=== PATIENT | male | born 1970 | race Caucasian/White ===

== ENCOUNTER 2019-09-07 09:04 | Outpatient (CLI) | payer MEDICAID, SELFPAY ==
--- NOTE | 2019-09-07 09:20 | MR_ITS ---
WS: [id number] MRI CERVICAL SPINE NONCONTRAST TECHNIQUE: Sagittal T1, T2 and STIR imaging. Axial T2, gradient, and fiesta imaging. CLINICAL INFORMATION: CERVICAL DISC DISORDER WITH MYELOPATHY MID-CERVICAL REGION COMPARISON: MRI January 2019 FINDINGS: Normal cervical alignment. Cord signal is normal. Disc bulging worse at C5-C6 and C6-C7. This is allison lar in appearance to . C3-C4: Mild disc osteophyte complex with endplate ridging. Mild bilateral foraminal narrowing. Spinal canal is patent. C4-C5: Slight retrolisthesis C4 on C5. Small central disc protrusion. Mild central canal stenosis. Mo derate facet arthropathy. Mild to moderate bilateral bony foraminal narrowing. C5-6: Disc osteophyte complex with broad-based central protrusion. Moderate central canal stenosis. M oderate to severe left greater than right bony foraminal narrowing. Moderate facet arthropathy. C6-C7: Central disc osteophyte protrusion with contact of the cervical cord. Mild to moderate central canal stenosis. Moderate left and mild right foraminal narrowing.. C7-T1: Normal. Visualized brain stem structures: Normal. Prevertebral soft tissues: Normal. MR/MR cervical spin wo con* [id number] IMPRESSION: 1. Normal cervical alignment. Disc osteophyte protrusions at C5-C6 and C6-C7. 2. Moderate central canal stenosis C5-C6 and mild to moderate central canal st enosis C6-C7 not significantly changed since . 3. Moderate to severe bony foraminal narrowing worse at bilateral C5-C6 worse in the left and left C6-C7. 4. Mild to moderate bilateral foraminal narrowing C4-C5. 5. Overall no significant changes compared to previous.
== END 2019-09-07 09:05 | disposition home or self-care (01) ==
LOC: RADWPI 09:07
PROVIDERS: Family Provider Family Medicine; PCP Family Medicine; Visit Provider Licensed Practical Nurse
DX: M50.020 Cervical disc disorder with myelopathy, mid-cervical region, unspecified level (principal); M48.02 Spinal stenosis, cervical region
CPT/HCPCS: 72141

== ENCOUNTER → 2019-10-05 14:36 | Outpatient (BNVA) | payer MEDICAID, SELFPAY | PROVIDERS: Family Provider Family Medicine; PCP Family Medicine; Visit Provider Anesthesiology | DX: M50.020 Cervical disc disorder with myelopathy, mid-cervical region, unspecified level (principal); M50.30 Other cervical disc degeneration, unspecified cervical region; M47.12 Other spondylosis with myelopathy, cervical region; M47.22 Other spondylosis with radiculopathy, cervical region; M48.02 Spinal stenosis, cervical region; F17.210 Nicotine dependence, cigarettes, uncomplicated; Z79.891 Long term (current) use of opiate analgesic; Z71.6 Tobacco abuse counseling | CPT/HCPCS: 99214 ==

== ENCOUNTER 2019-10-22 08:29 | Outpatient (RCR) | payer MEDICAID, SELFPAY | END 2019-11-09 23:59 | disposition home or self-care (01) | LOC: SPT 08:29 | PROVIDERS: Family Provider Family Medicine; PCP Family Medicine; Referring Provider Specialist; Visit Provider Specialist | DX: M54.2 Cervicalgia (principal); G89.29 Other chronic pain | CPT/HCPCS: 97110; 97161 ==

== ENCOUNTER → 2019-11-05 09:58 | Outpatient (BNVA) | payer MEDICAID, SELFPAY | PROVIDERS: Family Provider Family Medicine; PCP Family Medicine; Visit Provider Anesthesiology | DX: M50.020 Cervical disc disorder with myelopathy, mid-cervical region, unspecified level (principal); M48.02 Spinal stenosis, cervical region; M47.12 Other spondylosis with myelopathy, cervical region; M47.22 Other spondylosis with radiculopathy, cervical region; M50.30 Other cervical disc degeneration, unspecified cervical region; F17.210 Nicotine dependence, cigarettes, uncomplicated; Z76.1 Encounter for health supervision and care of foundling; Z79.891 Long term (current) use of opiate analgesic | CPT/HCPCS: 99214 ==

== ENCOUNTER 2019-11-10 06:00 | Outpatient (RCR) | payer MEDICAID, SELFPAY | END 2019-12-09 23:59 | disposition home or self-care (01) | LOC: SPT 06:00 | PROVIDERS: Family Provider Family Medicine; PCP Family Medicine; Referring Provider Specialist; Visit Provider Specialist | DX: G89.29 Other chronic pain (principal); M54.2 Cervicalgia; M25.519 Pain in unspecified shoulder | CPT/HCPCS: 97110; 97530 ==

== ENCOUNTER 2019-12-21 05:47 | Day surgery (SDC) | payer MEDICAID, SELFPAY ==
[2019-12-20 13:43] VITALS: BMI 24.7
[2019-12-21 06:21] VITALS: BP 128/73; PULSE 72; RESP 20; TEMP 36.3; O2SAT 98
[2019-12-21] MEDS: sodium chloride 0.9% 1,000 ML 30 ML IV (06:26)
[2019-12-21 06:32] LABS: Glucose Point of Care 93 mg/dL (70-110)
--- NOTE | 2019-12-21 06:59 | W.PM.OPSFHP ---
Same Day Surgery H&P Indication for Procedure/HPI DATE OF PROCEDURE: December 21, 2019 CHIEF COMPLAINT/INDICATIONFOR SURGICAL PROCEDURE: screening colonoscopy PREOP DIAGNOSIS: Hematochezia PLANNED PROCEDRUE: Operation Date: 12/21/19 07:05 Proposed Procedures p Colonoscopy 75781 Z12.11(Not Applicable) - Ruperto Kim MD Medications/Allergies* Home Medications Medication Instructions Recorded Confirmed Type acetaminophen 500 mg tablet 1,000 mg PO Q6H PRN 08/23/19 12/20/19 History metformin 500 mg tablet 500 mg PO ONCE tab 08/23/19 12/20/19 History sitagliptin 100 mg tablet 100 mg PO ONCE 08/23/19 12/20/19 History tizanidine 2 mg capsule 2 mg PO BID PRN 08/23/19 12/20/19 History aspirin 81 mg tablet,delayed 81 mg PO ONCE 08/24/19 12/20/19 History release buspirone 5 mg tablet 5 mg PO TID 08/24/19 12/20/19 History gabapentin 100 mg capsule 200 mg PO TID cap 08/24/19 12/20/19 History hydrochlorothiazide 25 mg tablet 25 mg PO QAM 08/24/19 12/20/19 History losartan 50 mg tablet 100 mg PO ONCE tab 08/24/19 12/20/19 History olive leaf extract 250 mg capsule mg PO ONCE cap 08/24/19 11/05/19 History citalopram 10 mg tablet 10 mg PO DAILY 10/05/19 12/20/19 History Allergies/Adverse Reactions Allergy/AdvReac Type Severity Reaction Status Date / Time No Known Allergies Allergy Verified 11/05/19 10:07 Current Medications: Generic Name Dose Route Start Last Admin Trade Name Freq PRN Reason Stop Dose Admin Sodium Chloride 1,000 mls @ 30 mls/hr 12/21/19 06:15 12/21/19 06:26 Sodium Chloride 0.9% IV 12/22/19 06:14 30 mls/hr .Q24H AYDE Administration Pertinent History/Comorbid Conditions* Medical History (Updated 11/05/19 @ 10:13 by Tj Castillo MD) Bilateral carpal tunnel syndrome Cervical disc disorder with myelopathy of mid-cervical region Diabetes Encounter for long-term (current) use of NSAIDs Encounter for long-term opiate analgesic use Hypertension 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 Shoulder pain Stenosis of cervical spine with myelopathy Family History (Updated 08/30/19 @ 14:44 by REMY Barton) Diabetes Mother Heart disease Mother Stroke Grandmother Denies family history of Anesthesia complication Bleeding disorder Social History Smoking and tobacco status: current every day smoker cigarettes Packs smoked per day: 1 Alcohol intake: never Lives independently: Yes Marital status: Single Current occupational status: disabled History of recent travel: No Pertinent Exam Findings alert and oriented x 3 Recommendations Surgery/Procedure today Coding Level of Care Code Acute Tile Professional for Maki Stokes
--- NOTE | 2019-12-21 07:05 | ANES.PREANE2 ---
Pre-Anesthetic Assessment Pre-Anesthetic Assessment: Height/Weight: Height 1.8 m Weight 80.286 kg Temp Pulse Resp BP Pulse Ox 97.3 F L 72 20 H 128/73 98 12/21/19 06:21 12/21/19 06:21 12/21/19 06:21 12/21/19 06:21 12/21/19 06:21 Preop Diagnosis: Hematochezia Proposed Procedure: Operation Date: 12/21/19 07:05 Proposed Procedures p Colonoscopy 73070 Z12.11(Not Applicable) - Ruperto Kim MD Last intake: Intake Last Liquid Date 12/20/19 Last Liquid Time 22:00 Last Solid Date 12/20/19 Last Solid Time 11:00 Social: Social History: Tobacco and No alcohol Exam: Pre-Anes Outpt Exam: alert, oriented x 3, clear to auscultation bilaterally and regular rate & rhythm Airway: Cervical ROM: WNL MP: 1 Dentition: False (upper and lower) History/ROS: No significant history except as noted Pulmonary: Pulmonary: COPD and DAVIS CV/HEM: CV/HEM: HTN : : None reported Hepatic: Hepatic: None reported GI: GI: GERD (occ) Comments: pos heme test Metabolic: Metabolic: DM Musc/skel: Musc/skel: Lower Back Pain and OA/DJD Neuropsych: Neuropsych: Anxiety, Depression and Neuropathy (left hand) Anesthetic Plan: ASA status: 3 Anesthesia: Anesthesia Evaluation and MAC Risk of > 500 ml blood loss (7ml/kg in children): No Meds/Allergies Current Medications: Current Medications Generic Name Dose Route Start Last Admin Trade Name Freq PRN Reason Stop Dose Admin Sodium Chloride 1,000 mls @ 30 ml s/hr 12/21/19 06:15 12/21/19 06:26 Sodium Chloride 0.9% IV 12/22/19 06:14 30 mls/hr .Q24H AYDE Administration PFSH Anesthesia PFSH: Medical History Bilateral carpal tunnel syndrome Cervical disc disorder with myelopathy of mid-cervical region Diabetes Encounter for long-term (current) use of NSAIDs Encounter for long-term opiate analgesic use Hypertension 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
[2019-12-21] MEDS: sodium chloride 0.9% 1,000 ML 100 ML IV (08:15)
[2019-12-21 08:55] VITALS: BP 105/58; PULSE 67; RESP 16; TEMP 36.2; O2SAT 95
[2019-12-21 09:16] VITALS: BP 129/72; PULSE 69; RESP 20; O2SAT 98
== END 2019-12-21 09:20 | disposition home or self-care (01) ==
PROVIDERS: PCP Family Medicine; Visit Provider Surgery
PROC: 0DJD8ZZ Inspection of Lower Intestinal Tract, Via Natural or Artificial Opening Endoscopic (ICD-10-PCS; CPT 45378; principal; 2019-12-21 10:55)
DX: K92.1 Melena (principal); I10 Essential (primary) hypertension; M19.90 Unspecified osteoarthritis, unspecified site; F17.210 Nicotine dependence, cigarettes, uncomplicated; K21.9 Gastro-esophageal reflux disease without esophagitis; E11.40 Type 2 diabetes mellitus with diabetic neuropathy, unspecified; Z82.49 Family history of ischemic heart disease and other diseases of the circulatory system; K64.8 Other hemorrhoids
CPT/HCPCS: 45378; 12345; 36416; 82962; J2704; J7030

== ENCOUNTER → 2020-04-04 09:21 | Outpatient (BNVA) | payer MEDICAID, SELFPAY | PROVIDERS: PCP Family Medicine; Visit Provider Anesthesiology | DX: M48.02 Spinal stenosis, cervical region (principal); M50.020 Cervical disc disorder with myelopathy, mid-cervical region, unspecified level; M47.12 Other spondylosis with myelopathy, cervical region; M47.22 Other spondylosis with radiculopathy, cervical region; M50.30 Other cervical disc degeneration, unspecified cervical region; F17.210 Nicotine dependence, cigarettes, uncomplicated; Z79.891 Long term (current) use of opiate analgesic | CPT/HCPCS: 99213; 99214 ==

== ENCOUNTER → 2020-05-26 10:25 | Outpatient (BNVA) | payer MEDICAID, SELFPAY | PROVIDERS: PCP Internal Medicine; Visit Provider Anesthesiology | DX: M48.02 Spinal stenosis, cervical region (principal); M50.020 Cervical disc disorder with myelopathy, mid-cervical region, unspecified level; M47.12 Other spondylosis with myelopathy, cervical region; M47.22 Other spondylosis with radiculopathy, cervical region; M50.30 Other cervical disc degeneration, unspecified cervical region; F17.210 Nicotine dependence, cigarettes, uncomplicated; Z79.891 Long term (current) use of opiate analgesic | CPT/HCPCS: 99213; 99214 ==

== ENCOUNTER → 2020-07-27 08:04 | Outpatient (BNVA) | payer MEDICAID, SELFPAY | PROVIDERS: PCP Nurse Practitioner Family; Visit Provider Anesthesiology | DX: M48.02 Spinal stenosis, cervical region (principal); M50.020 Cervical disc disorder with myelopathy, mid-cervical region, unspecified level; M47.12 Other spondylosis with myelopathy, cervical region; M47.22 Other spondylosis with radiculopathy, cervical region; M50.30 Other cervical disc degeneration, unspecified cervical region; F17.210 Nicotine dependence, cigarettes, uncomplicated; Z79.891 Long term (current) use of opiate analgesic | CPT/HCPCS: 99213; 99214 ==

== ENCOUNTER → 2020-09-12 09:32 | Outpatient (BNVA) | payer MEDICAID, SELFPAY | PROVIDERS: PCP Nurse Practitioner Family; Visit Provider Anesthesiology | DX: G89.29 Other chronic pain (principal); M48.02 Spinal stenosis, cervical region; M50.020 Cervical disc disorder with myelopathy, mid-cervical region, unspecified level; M47.12 Other spondylosis with myelopathy, cervical region; M47.22 Other spondylosis with radiculopathy, cervical region; M50.30 Other cervical disc degeneration, unspecified cervical region; M25.511 Pain in right shoulder; M25.512 Pain in left shoulder; F17.200 Nicotine dependence, unspecified, uncomplicated; Z79.891 Long term (current) use of opiate analgesic | CPT/HCPCS: 99214 ==

== ENCOUNTER → 2020-11-09 10:09 | Outpatient (BNVA) | payer MEDICAID, SELFPAY | PROVIDERS: PCP Nurse Practitioner Family; Visit Provider Anesthesiology | DX: G89.29 Other chronic pain (principal); M54.42 Lumbago with sciatica, left side; M48.02 Spinal stenosis, cervical region; M50.020 Cervical disc disorder with myelopathy, mid-cervical region, unspecified level; M50.30 Other cervical disc degeneration, unspecified cervical region; M54.9 Dorsalgia, unspecified; F17.210 Nicotine dependence, cigarettes, uncomplicated; Z79.891 Long term (current) use of opiate analgesic | CPT/HCPCS: 99214 ==

== ENCOUNTER → 2021-01-09 09:43 | Outpatient (BNVA) | payer MEDICAID, SELFPAY | PROVIDERS: PCP Nurse Practitioner Family; Visit Provider Anesthesiology | DX: G89.29 Other chronic pain (principal); M48.02 Spinal stenosis, cervical region; M50.020 Cervical disc disorder with myelopathy, mid-cervical region, unspecified level; M47.12 Other spondylosis with myelopathy, cervical region; M47.22 Other spondylosis with radiculopathy, cervical region; M50.30 Other cervical disc degeneration, unspecified cervical region; M54.9 Dorsalgia, unspecified; F17.210 Nicotine dependence, cigarettes, uncomplicated; Z79.891 Long term (current) use of opiate analgesic | CPT/HCPCS: 99214 ==

== ENCOUNTER → 2021-03-09 08:24 | Outpatient (BNVA) | payer MEDICAID, SELFPAY | PROVIDERS: PCP Nurse Practitioner Family; Visit Provider Anesthesiology | DX: G89.29 Other chronic pain (principal); M54.5 Low back pain; M48.02 Spinal stenosis, cervical region; M50.020 Cervical disc disorder with myelopathy, mid-cervical region, unspecified level; M47.12 Other spondylosis with myelopathy, cervical region; M47.22 Other spondylosis with radiculopathy, cervical region; M50.30 Other cervical disc degeneration, unspecified cervical region; F17.210 Nicotine dependence, cigarettes, uncomplicated; Z79.891 Long term (current) use of opiate analgesic | CPT/HCPCS: 99214 ==

== ENCOUNTER → 2021-05-02 08:10 | Outpatient (BNVA) | payer MEDICAID, SELFPAY | PROVIDERS: PCP Nurse Practitioner Family; Visit Provider Anesthesiology | DX: G89.29 Other chronic pain (principal); M54.42 Lumbago with sciatica, left side; M48.02 Spinal stenosis, cervical region; M50.020 Cervical disc disorder with myelopathy, mid-cervical region, unspecified level; M47.12 Other spondylosis with myelopathy, cervical region; M47.22 Other spondylosis with radiculopathy, cervical region; M50.30 Other cervical disc degeneration, unspecified cervical region; F17.210 Nicotine dependence, cigarettes, uncomplicated; Z79.891 Long term (current) use of opiate analgesic | CPT/HCPCS: 99214 ==

== ENCOUNTER → 2021-07-11 09:58 | Outpatient (BNVA) | payer MEDICAID, SELFPAY | PROVIDERS: PCP Nurse Practitioner Family; Visit Provider Anesthesiology | DX: G89.29 Other chronic pain (principal); M54.50 Low back pain, unspecified; M48.02 Spinal stenosis, cervical region; M50.020 Cervical disc disorder with myelopathy, mid-cervical region, unspecified level; M47.12 Other spondylosis with myelopathy, cervical region; M47.22 Other spondylosis with radiculopathy, cervical region; M50.30 Other cervical disc degeneration, unspecified cervical region; M25.511 Pain in right shoulder; M25.512 Pain in left shoulder; F17.200 Nicotine dependence, unspecified, uncomplicated; Z79.891 Long term (current) use of opiate analgesic | CPT/HCPCS: 99214 ==

== ENCOUNTER → 2021-09-11 08:44 | Outpatient (BNVA) | payer MEDICAID, SELFPAY | PROVIDERS: PCP Nurse Practitioner Family; Visit Provider Anesthesiology | DX: G89.29 Other chronic pain (principal); M54.50 Low back pain, unspecified; M48.02 Spinal stenosis, cervical region; G99.2 Myelopathy in diseases classified elsewhere; F17.210 Nicotine dependence, cigarettes, uncomplicated; Z79.891 Long term (current) use of opiate analgesic | CPT/HCPCS: 99214 ==

== ENCOUNTER 2022-12-07 09:46 | Outpatient (CLI) | payer MEDICAID, SELFPAY ==
--- NOTE | 2022-12-07 10:44 | MR_ITS ---
WS: [id number] MRI CERVICAL SPINE NONCONTRAST HISTORY: CERVICAL DDD COMPARISON: 09/07/2019 Technique: Multiplanar, multisequence noncontrast imaging of the cervical spine. Very minimal anterolisthesis of C6. No fractures or marrow edema. Signal within the cervical cord is normal. Visualized posterior fossa is unremarkable. Craniocervical junction, C1 and C2 relationship, odontoid process and soft tissues are normal. C2-C3: Normal. C3-C4: Very minimal annular disc bulging and osteophytic ridging. There is very slight narrowing of t he foramina. C4-C5: Mild annular disc bulging with very mild osteophytic ridging. Mild effacement of ventral CSF a nd mild foraminal narrowing. C5-C6: Diffuse annular disc bulging with marked osteophytic ridging and mild facet arthritis. Moderat e RIGHT and mild LEFT disc osteophyte complexes efface and CSF and deforming the cord. Slightly great er deformity involving the RIGHT lateral cervical cord. Moderate to severe central stenosis. Severe b ilateral foraminal stenosis. Mild progression of stenosis since the prior study. C6-C7: Diffuse osteophytic ridging and annular disc bulging. Disc osteophyte complexes encroaching up on the ventral thecal sac. Bilateral paracentral disc osteophyte complexes and foraminal osteophytes. Moderate central with moderate LEFT and mild RIGHT foraminal stenosis. Minimal progression since the prior study. C7-T1: Bilateral foraminal osteophytes. Mild foraminal stenosis. Paraspinal soft tissue are normal. MR/MR cervical spin wo con* [id number] IMPRESSION: 1. Mild progression of degenerative disc disease and stenoses since 09/07/2019. 2. Moderate central with moderate LEFT and mild RIGHT foraminal stenosis at C 6-7. Mild progression of disease since the prior study. 3. Moderate to severe central stenosis at C5-6 due to disc osteophyte complexe s. Severe bilateral foraminal stenosis. Mild progression since the prior study. 4. Disc osteophytes contacts the cord at C5-6 and C6-7 but no myelomalacia. 5. Mild foraminal narrowing at C4-5 and C7-T1.
--- NOTE | 2022-12-07 10:44 | MR_ITS ---
WS: [id number] MRI LUMBAR SPINE NONCONTRAST HISTORY: LUMBAR RADICULOPATHY COMPARISON: None available. TECHNIQUE: Sagittal and axial multisequence imaging is submitted. T6 hemangioma. L5 anterolisthesis by 3.7 mm. Remaining vertebral bodies are normally aligned. No fractures. Hypertro phic osteophytes at all levels. There is a small amount of edema along the anterior superior endplate of L3. Mild disc space desiccation without narrowing. Conus terminates normally at L1-2 disc level. L1-L2: Normal. L2-L3: Mild annular disc bulge with mild facet and ligamentum flavum hypertrophy. Very mild LEFT suba rticular recess encroachment. L3-L4: Mild annular disc bulging with a RIGHT paracentral extruded disc extending inferior to the dis c level contacting the thecal sac in the RIGHT subarticular recess. Significant encroachment upon the RIGHT L4 traversing nerve root. Mild central stenosis with mild foraminal stenosis. More significant encroachment into the RIGHT lateral recess. L4-L5: Mild annular disc bulging with central protrusion and ligamentum flavum and facet arthritis. L arge central annular fissure. Disc encroaches bilaterally into the subarticular recesses contacting t he traversing L5 nerve roots. Mild bilateral foraminal stenosis. L5-S1: Unroofing of the disc with a central disc protrusion. Marked facet joint arthritis, LEFT great er than RIGHT. Mild central and bilateral subarticular recess and foraminal stenosis. Disc contacts t he S1 nerve roots bilaterally. No paraspinal abnormality. MR/MR lumbar spine wo con* [id number] IMPRESSION: 1. L5 grade 1 spondylolisthesis. Suspect pars defects at L5. 2. L3-4: RIGHT paracentral extruded disc extends caudad to the disc level grea test into the RIGHT subarticular recess. Significant encroachment upon the RIGH T L4 traversing nerve root. 3. Additional mild central stenosis with foraminal stenosis at L3-4. 4. Annular disc bulge with a central disc protrusion at L4-5 with disc contact ing the traversing L5 nerve roots. Central and bilateral foraminal stenosis, mi ld. 5. Marked facet joint arthritis at L5-S1, LEFT greater than RIGHT. 6. Mild central, bilateral subarticular recess and foraminal stenosis at L5-S1 with disc contacting the S1 nerve roots bilaterally.
== END 2022-12-07 09:47 | disposition home or self-care (01) ==
LOC: RAD 09:48
PROVIDERS: PCP Nurse Practitioner Family; Visit Provider General Practice
DX: M54.16 Radiculopathy, lumbar region (principal); M43.16 Spondylolisthesis, lumbar region; M25.78 Osteophyte, vertebrae; M48.02 Spinal stenosis, cervical region; M48.061 Spinal stenosis, lumbar region without neurogenic claudication; M50.30 Other cervical disc degeneration, unspecified cervical region
CPT/HCPCS: 72141; 72148

== ENCOUNTER → 2023-01-16 09:29 | Outpatient (BNVA) | payer MEDICAID, SELFPAY | PROVIDERS: PCP Nurse Practitioner Family; Referring Provider Family Medicine; Visit Provider Physician Assistant | DX: M48.02 Spinal stenosis, cervical region (principal); G99.2 Myelopathy in diseases classified elsewhere; M25.519 Pain in unspecified shoulder; M17.9 Osteoarthritis of knee, unspecified; M54.2 Cervicalgia; M54.9 Dorsalgia, unspecified; G89.29 Other chronic pain; M75.41 Impingement syndrome of right shoulder; M54.12 Radiculopathy, cervical region | CPT/HCPCS: 20610; 72050; 73030; 99203; J1040; J2795 ==

== ENCOUNTER → 2023-03-12 10:44 | Outpatient (BNVA) | payer MEDICAID, SELFPAY | PROVIDERS: PCP Nurse Practitioner Family; Visit Provider Physician Assistant | DX: M75.41 Impingement syndrome of right shoulder; M54.2 Cervicalgia; M54.9 Dorsalgia, unspecified; M25.512 Pain in left shoulder | CPT/HCPCS: 99213 ==

== ENCOUNTER 2023-04-03 10:07 | Outpatient (CLI) | payer MEDICAID, SELFPAY ==
--- NOTE | 2023-04-03 10:15 | MR_ITS ---
WS: [id number] MRI LEFT SHOULDER HISTORY: shoulder pain COMPARISON: None available. TECHNIQUE: Multiplanar sequences of the shoulder joint are submitted. Moderate AC joint hypertrophy. Small amount of fluid along the AC ligament. No significant subacromia l impingement. There is a very small amount of fluid in the subacromial bursa. Very minimal encroachm ent upon the supraspinatus muscle. No os acromion. Biceps tendon is poorly visualized in the bicipita l groove but is probably present. Motion artifact causing obscuration of fine detail. No os acromion. No rotator cuff muscle atrophy or edema. Mild tendinopathy in the distal supraspinatus tendon and fra chester along the bursal surface of the supraspinatus tendon. No tears are identified. No labral tears. IMPRESSION: 1. Moderate AC joint arthritis with mild encroachment upon the supraspinatus tendon. 2. No rotator cuff tear. 3. Minimal fraying along the bursal surface of the supraspinatus tendon.
--- NOTE | 2023-04-03 11:00 | MR_ITS ---
WS: [id number] MRI RIGHT SHOULDER HISTORY: shoulder pain COMPARISON: Radiograph 01/16/2023 TECHNIQUE: Multiplanar sequences of the shoulder joint are submitted. Moderate to severe AC joint arthritis. Hypertrophic bone formation distal clavicle and acromion. Incr eased T2 signal throughout the AC ligament. Hypertrophic formation from the AC joint encroaching upon the supraspinatus tendon. Mild subacromial impingement. No significant amount of fluid in the subacr omial or subdeltoid bursa. Biceps tendon is not identified in the bicipital groove. No os acromion. Very mild atrophy of the supraspinatus muscle. No rotator cuff tears are identified. Very minimal ten dinopathy in the distal supraspinatus tendon. No joint effusion. No labral tear. No muscle edema or a trophy. IMPRESSION: 1. No rotator cuff tear. 2. Moderate to severe AC joint arthritis encroaching upon the supraspinatus muscle and tendon. 3. Biceps tendon is not identified in the bicipital groove. May be torn or subluxed.
== END 2023-04-03 10:08 | disposition home or self-care (01) ==
LOC: RAD 10:08
PROVIDERS: PCP Nurse Practitioner Family; Visit Provider Physician Assistant
DX: M19.011 Primary osteoarthritis, right shoulder (principal); M19.012 Primary osteoarthritis, left shoulder; M75.41 Impingement syndrome of right shoulder; M54.12 Radiculopathy, cervical region
CPT/HCPCS: 73221

== ENCOUNTER → 2023-04-08 12:55 | Outpatient (BNVA) | payer MEDICAID, SELFPAY | PROVIDERS: PCP Nurse Practitioner Family; Visit Provider Physician Assistant | DX: M47.22 Other spondylosis with radiculopathy, cervical region | CPT/HCPCS: 99213 ==

== ENCOUNTER → 2023-04-29 11:17 | Outpatient (BNVA) | payer MEDICAID, SELFPAY | PROVIDERS: PCP Nurse Practitioner Family; Visit Provider Student in an Organized Health Care Education/Training Program | DX: M75.42 Impingement syndrome of left shoulder; M75.41 Impingement syndrome of right shoulder; M19.012 Primary osteoarthritis, left shoulder | CPT/HCPCS: 20610; 99214; J3301 ==

== ENCOUNTER 2023-10-13 10:48 | Outpatient (CLI) | payer MEDICAID, SELFPAY ==
--- NOTE | 2023-10-13 11:03 | XRR_ITS ---
PROCEDURE INFORMATION: Exam: XR Cervical Spine Exam date and time: 10/13/2023 11:13 AM Age: 53 years old Clinical indication: Neck pain; Prior surgery; Surgery date: 6+ months; Surgery type: Fusion of cervical spine region; Additional info: Cervical spinal stenosis/fusion of cervical spine region TECHNIQUE: Imaging protocol: Radiologic exam of the cervical spine. Views: 2 or 3 views. COMPARISON: CR XR cervical spine 4-5V [id number] 01/16/2023 9:33 AM FINDINGS: Bones/joints: Status post C5-C7 anterior spinal fusion. Hardware is intact. Normal alignment. Residual disc spaces are preserved. Vertebral body heights are preserved. No acute fracture. Soft tissues: Unremarkable. XR/XR cervical spine 3V* [id number] IMPRESSION: Postsurgical changes without evidence of complication.
== END 2023-10-13 10:49 | disposition home or self-care (01) ==
LOC: RAD 10:50
PROVIDERS: PCP Nurse Practitioner Family; Visit Provider Nurse Practitioner Family
DX: M48.02 Spinal stenosis, cervical region (principal); M43.22 Fusion of spine, cervical region
CPT/HCPCS: 72040

== ENCOUNTER → 2023-10-31 09:06 | Outpatient (BNVA) | payer MEDICAID, SELFPAY | PROVIDERS: PCP Nurse Practitioner Family; Visit Provider Physician Assistant | DX: M75.41 Impingement syndrome of right shoulder (principal); M75.42 Impingement syndrome of left shoulder | CPT/HCPCS: 99213 ==

== ENCOUNTER 2024-03-22 13:02 | Outpatient (CLI) | payer MEDICAID, SELFPAY ==
--- NOTE | 2024-03-22 13:11 | XR_ITS ---
WS: [id number] Examination: XR cervical spine 3V* [id number] Reason for Exam: CERVICAL STENOSIS OF SPINE Date: March 22, 2024 Comparison: October 13, 2023 Findings: Again postsurgical changes are noted. There is anterior plate and screw fixation with interbody space rs at C5-6 and C6-7. Alignment is anatomic without compression or subluxation. The KODY is intact. C1-2 relationships are m aintained. There is no prevertebral swelling. XR/XR cervical spine 3V* [id number] Impression: Stable appearance of the cervical spine. Again postsurgical changes at C5-C7 ar e noted.
== END 2024-03-22 13:03 | disposition home or self-care (01) ==
LOC: RAD 13:03
PROVIDERS: PCP Nurse Practitioner Family; Visit Provider Nurse Practitioner Family
DX: M48.02 Spinal stenosis, cervical region (principal); M43.22 Fusion of spine, cervical region
CPT/HCPCS: 72040

== ENCOUNTER → 2024-04-23 07:51 | Outpatient (BNVA) | payer MEDICAID, SELFPAY | PROVIDERS: PCP Nurse Practitioner Family; Visit Provider Student in an Organized Health Care Education/Training Program | DX: M75.42 Impingement syndrome of left shoulder (principal); M75.41 Impingement syndrome of right shoulder; M19.011 Primary osteoarthritis, right shoulder; M19.012 Primary osteoarthritis, left shoulder | CPT/HCPCS: 73030; 99213 ==

== ENCOUNTER 2024-10-29 12:31 | Outpatient (CLI) | payer MEDICAID, SELFPAY ==
--- NOTE | 2024-10-29 12:36 | CT_ITS ---
WS: [email or web address] LDCT LUNG CANCER SCREENING TECHNIQUE: Noncontrast CT of the chest with coronal and sagittal reformatted images. CLINICAL INFORMATION: NICOTINE DEPENDENCE,CIGARETTES COMPARISON: None. DLP: 93.70 mGy.cm DIvol: Mean CTDIvol: 1.80 (mGy) All CT scans at [facility] use at least one of these dose optimization techniques: automated exposure control; mA and/or kV adjustment per patient size (includes targeted exams where dose is matched to clinical indication); or iterative reconstruction. FINDINGS: 3 mm noncalcified nodule RIGHT middle lobe. Mild chronic emphysematous changes. 5 mm area of parenchymal scarring RIGHT upper lobe posteriorly. 6 mm subpleural nodule LEFT lower lobe. Additional tiny subpleural nodule LEFT lower lobe measuring 3 mm Normal caliber thoracic aorta. Aortic calcification. Coronary calcification. No mediastinal or hilar lymphadenopathy. No axillary lymphadenopathy. Multiple low- attenuation lesions in the liver some too small to characterize likely hepatic cysts. Adrenal glands are normal. Splenic artery calcification. Small esophageal hiatal hernia. Mild thoracic curve. Hypertrophic changes thoracic spine. CT/CT lung screening [id number] IMPRESSION: LUNG-RADS: 2S-Benign Appearance or Behavior with Significant Findings Low-attenuation lesions in the liver some too small to characterize. This can b e followed up with contrast-enhanced CT abdomen pelvis and/or ultrasound FOLLOW UP: 12 Month: Continue annual screening with LDCT
== END 2024-10-29 12:32 | disposition home or self-care (01) ==
PROVIDERS: PCP Nurse Practitioner Family; Visit Provider Family Medicine
DX: Z12.2 Encounter for screening for malignant neoplasm of respiratory organs (principal); F17.210 Nicotine dependence, cigarettes, uncomplicated; R91.8 Other nonspecific abnormal finding of lung field; J43.9 Emphysema, unspecified; J98.4 Other disorders of lung; I70.0 Atherosclerosis of aorta; I25.10 Atherosclerotic heart disease of native coronary artery without angina pectoris; K76.9 Liver disease, unspecified; I70.8 Atherosclerosis of other arteries; K44.9 Diaphragmatic hernia without obstruction or gangrene; M43.8X4 Other specified deforming dorsopathies, thoracic region; M89.38 Hypertrophy of bone, other site
CPT/HCPCS: 71271

== ENCOUNTER 2024-11-24 08:35 | Outpatient (CLI) | payer MEDICAID, SELFPAY ==
--- NOTE | 2024-11-24 08:38 | US_ITS ---
WS: [id number] RIGHT UPPER QUADRANT ULTRASOUND HISTORY: LIVER LESION COMPARISON: CT 10/29/2024 Liver: 15.6 cm in length. Normal size liver. No solid mass identified. Coarse echotexture and hepatic steatosis. Single cyst noted along the superior surface of the liver measures 1.2 x 1.1 x 1.6 cm. This corresponds to the abnormality on the prior lung screening CT. Only one cyst is identified. Portal Vein: Normal hepatopetal flow with monophasic waveform. Gallbladder: Normally distended gallbladder with no stones or wall thickening. CBD: 0.3 cm Pancreas: Not visualized. Right kidney: 11.2 cm in length. Normal size and echogenicity. No hydronephrosis or mass. Aorta and IVC: Unremarkable abdominal aorta and IVC. No ascites. US/US abdomen limited [id number] IMPRESSION: 1. Negative gallbladder. 2. Single hepatic cyst identified measures 1.2 x 1.1 x 1.6 cm in the RIGHT lob e. Not all of the low-attenuation lesions described on the lung screening CT ar e identified. Consider follow-up MRI liver with and without contrast.
== END 2024-11-24 08:36 | disposition home or self-care (01) ==
LOC: RAD 08:36
PROVIDERS: PCP Family Medicine; Visit Provider Family Medicine
DX: K76.89 Other specified diseases of liver (principal); K76.0 Fatty (change of) liver, not elsewhere classified
CPT/HCPCS: 76705

== ENCOUNTER 2024-11-29 11:23 | Outpatient (CLI) | payer MEDICAID, SELFPAY ==
--- NOTE | 2024-11-29 11:31 | MR_ITS ---
WS: [email or web address] MRI/MRCP OF THE ABDOMEN WITHOUT GADOLINIUM ENHANCEMENT TECHNIQUE: Coronal T2 Fase BH, Axial T2 Fase BH, Axial T2 FS BH, Zxial 3D Diaz BH, Axial DWI BH, 2D MRCP Radial BH, 3D MRCP (Resp), and Axial 3D Dyn BH Post sequences. CLINICAL INFORMATION: LIVER LESION COMPARISON: Ultrasound 11/24/[address] 10/29/2024 FINDINGS: Numerous small hepatic cysts in the liver the largest measuring 12 mm in the RIGHT hepatic lobe. No suspicious enhancing hepatic lesions. Tiny cystic lesions on the arterial phase imaging most compatible with tiny benign biliary hamartomas. No hydronephrosis in either kidney. Normal caliber upper abdominal aorta. Celiac and SMA are patent. Normal visualized gallbladder. Adrenal glands are normal. Mild fatty infiltration of the liver. MR/MR abdomen wo/w con* [id number] Impression: 1. Numerous small hepatic cysts are visualized with the largest measuring 12 m m. 2. Numerous tiny cystic lesions on the arterial phase imaging suspicious for t iny biliary hematomas 3. No suspicious enhancing lesions.
[2024-11-29] MEDS: gadobenate dimeglumine 20 mL vial 19 ML IV (12:07)
== END 2024-11-29 11:24 | disposition home or self-care (01) ==
PROVIDERS: PCP Family Medicine; Visit Provider Family Medicine
DX: K76.89 Other specified diseases of liver (principal); K76.0 Fatty (change of) liver, not elsewhere classified
CPT/HCPCS: 74183

== ENCOUNTER → 2025-01-17 11:08 | Outpatient (BNVA) | payer MEDICAID, SELFPAY | PROVIDERS: PCP Family Medicine; Referring Provider Family Medicine; Visit Provider Student in an Organized Health Care Education/Training Program | DX: Z12.11 Encounter for screening for malignant neoplasm of colon (principal) | CPT/HCPCS: 99024; 99203 ==